=== PATIENT | male | born 2000 | race Caucasian/White ===

== ENCOUNTER 2023-08-05 22:33 | Emergency (ER) | payer OTHER ==
[2023-08-05 22:43] VITALS: BP 137/69; O2SAT 99
--- NOTE | 2023-08-05 23:38 | ED Physician Documentation ---
PD HPI HEENT - Stated complaint Stated Complaint: L EAR PX - Chief complaint Chief Complaint: Heent - History obtained from History obtained from: Patient - Additional information Additional information: HPI from patient. Patient c/o sudden onset decreased hearing left ear. This occurred three days ago when he was trying to clean out the ear canal using a simeon pin. He also notes scant discharge from the ear, clear/yellow. He denies pain. He has become increasingly concerned that he might have ruptured his ear drum due to the decreased hearing from the left ear. PD PAST MEDICAL HISTORY - Past Medical History Past Medical History: No Cardiovascular: None Respiratory: None Neuro: None Endocrine/Autoimmune: None GI: None : None HEENT: None Psych: None Musculoskeletal: None Derm: None - Past Surgical History Past Surgical History: Yes HEENT: Tonsil/Adenoidectomy - Present Medications Home Medications: Ambulatory Orders Medication Instructions Recorded Confirmed Amox/Clav 875/125 [Augmentin 1 tablet PO Q12H 7 Days #14 tablet 08/06/23 875/125 Tab] - Allergies Allergies/Adverse Reactions: Allergies Allergy/AdvReac Type Severity Reaction Status Date / Time No Known Drug Allergies Allergy Verified 08/05/23 22:41 - Social History Does the pt smoke?: No Smoking Status: Never smoker Does the pt drink ETOH?: No Does the pt have substance abuse?: No - Immunizations Immunizations are current?: Yes - POLST Patient has POLST: No PD ED PE NORMAL - Vitals Vital signs reviewed: Yes - General General: Alert and oriented X 3, No acute distress, Well developed/nourished PD ED PE EXPANDED - HEENT HEENT: Other (normal right TM. Left TM obscured due to cerumen. ) Results - Vitals Vitals: Oxygen O2 Source Room air PD Medical Decision Making - ED course Complexity details: considered differential, d/w patient ED course: After multiple attempts to irrigate the left ear using 50cc syringe and 20g plastic catheter sheath, some cerumen was flushed out but small amount remains and further attempts can be at home using OT cerumen-removal kit with bulb syringe. I was able to visualize the periphery of the TM and there is no evidence of rupture; there remains a small amount of cerumen against the central portion of the TM. The EAC is erythematous and mildly edematous, which would account for the discharge, and he is given cortisporin gtt for this with dosing instructions. Given that there remains only a small portion of cerumen but ongoing decreased hearing and inability to visualize the entire TM, will also rx augmentin (first dose in ED) for possible OM, as well. Return precautions and follow up recommendations reviewed with patient. Departure - Departure Disposition: 01 Home, Self Care Clinical Impression: Otitis externa Qualifiers: Otitis externa type: swimmer's ear Chronicity: acute Laterality: left Qualified Code(s): H60.332 - Swimmer's ear, left ear Condition: Good Instructions: ED Otitis Externa Prescriptions: Amox/Clav 875/125 [Augmentin 875/125 Tab] 1 tablet PO Q12H 7 Days #14 tablet Comments: Your left outer ear canal appears to be infected; for this, you are given antibiotic drops in the emergency department and you should continue these antibiotic drops as follows: 3 to 4 drops in the left ear 3 times per day for 1 week. As we discussed, I was able to visualize portions of the left eardrum, and I do not see any evidence that it is ruptured. However, due to the limited visuali zation of the eardrum (due to the earwax that remained in your ear despite irrigation), I am also prescribing an oral antibiotic that would help cover for a middle ear infection (eardrops treat outer ear infections but oral antibiotics are required to treat middle ear infections). You were given the first dose of this antibiotic (Augmentin) in the emergency department, and I have electronically submitted a prescription for 1-week course of the antibiotic to the [facility] pharmacy in [place]. Contact your primary care provider tomorrow morning to arrange for a follow- up/reevaluation appointment; ideally, reevaluation within 48 hours. As we discussed, there is still a small amount of earwax in the left ear. You should purchase and use an [id number] earwax removal system. Forms: PCP List Discharge Date/Time: 08/06/23 00:26
[2023-08-06] MEDS: AMOX/CLAV 875 MG/125 MG TABLET PO STA (00:16)
[2023-08-06] MEDS: NEOMYCIN/POLYMYX/HC OTIC DROPS LEFTEAR STA (00:16)
== END 2023-08-06 00:26 | disposition home or self-care (01) ==
LOC: ED 22:33
DX: H60.332 Swimmer's ear, left ear (principal)
CPT/HCPCS: 69209; 99282; 99283; A9270